=== PATIENT | female | born 1985 | race Caucasian/White ===

== ENCOUNTER 2017-03-30 00:10 | Emergency (ER) | payer MEDICAID, OTHER ==
[2017-03-30 00:14] VITALS: RESP 18; TEMP 98.1; O2SAT 100
[2017-03-30] MEDS ORDERED: KETOROLAC TROMETHAMINE 30 MG/ML SOL IV ONE (00:30)
[2017-03-30] MEDS ORDERED: ONDANSETRON HCL 4 MG/2 ML SOL IV ONE (00:30)
[2017-03-30] MEDS ORDERED: ONDANSETRON HCL 4 MG/2 ML SOL ONE (00:35)
[2017-03-30] MEDS ORDERED: KETOROLAC TROMETHAMINE 30 MG/ML SOL ONE (00:35)
[2017-03-30] MEDS: SODIUM CHLORIDE 0.9% 1000ML 1,000 ML IV SCH ×2 (00:35→01:31)
[2017-03-30] MEDS ORDERED: SODIUM CHLORIDE 0.9% FLUSH 10 ML SOL IV PRN (00:41)
[2017-03-30 00:49] LABS: BASOPHILS % (AUTO) 1 % (0-3); EOSINOPHILS % (AUTO) 3 % (0-9); HEMATOCRIT 39 % (35-47); MEAN CORPUSCULAR HGB CONC 34.7 gm/dl (32.0-36.0); MEAN CORPUSCULAR VOLUME 94 fL (81-99); MONOCYTES % (AUTO) 8.9 % (0-12); NEUTROPHILS % (AUTO) 54.4 % (37-80)
[2017-03-30 01:07] LABS: ALBUMIN 3.8 gm/dl (3.4-5.0); CALCIUM 8.6 mg/dl (8.5-10.1); POTASSIUM 3.8 mMol/L (3.5-5.1)
[2017-03-30 01:09] LABS: APPEARANCE,URINE Clear; BILIRUBIN,URINE NEGATIVE (NEGATIVE); COLOR,URINE Yellow; GLUCOSE, URINE (UA) NEGATIVE (NEGATIVE); KETONES,URINE NEGATIVE (NEGATIVE); LEUKOCYTE ESTERASE ,URINE NEGATIVE (NEGATIVE); NITRATE,URINE NEGATIVE (NEGATIVE); OCCULT BLOOD,URINE NEGATIVE (NEG-TRACE); UROBILINOGEN,URINE 0.2 (0.2-1.0 EU)
[2017-03-30 01:16] LABS: RBC,URINE NEG (0-3AV/HPF); WBC,URINE 0-2 (0-5AV/HPF)
[2017-03-30 01:55] VITALS: BP 104/67; PULSE 68
== END 2017-03-30 02:01 | disposition home or self-care (01) | DRG 392 ==
LOC: ED 00:10
DX: R10.33 Periumbilical pain (principal); K59.00 Constipation, unspecified
CPT/HCPCS: 74176; 80053; 81001; 82150; 84703; 85025; 96365; 96374; 96375; 99284; 99285; J1885; J2405